=== PATIENT | female | born 1950 | race Caucasian/White ===

== ENCOUNTER 2019-01-23 08:56 | Emergency (ER) | payer OTHER, MEDICARE ==
[~2019-01-23] VITALS: Ht 162.6 cm; Wt 84.2 kg
[2019-01-23 09:01] VITALS: BP 165/85
--- NOTE | 2019-01-23 09:30 | NUR ---
PT CAME IN TODAY FOR SKIN RASH. STATES SHE HAS GOTTEN AN INJECTION SATURDAY EVENING AND HAS USED TOPICAL TREATMENT. STATES SHE HAS SEEN PAIN MANAGEMENT THIS AM AND THEY HAVE REQUESTED BLOOD WORK TO CHECK FOR INFECTION. PT SITTING ON [facility] NO S/S OF DISTRESS AT THIS TIME.
[2019-01-23] MEDS ORDERED: FAMOTIDINE 20 MG TABLET ONE (09:48)
[2019-01-23] MEDS ORDERED: DIPHENHYDRAMINE 25 MG CAPSULE ONE (09:49)
[2019-01-23] MEDS ORDERED: FAMOTIDINE 20 MG TABLET PO ONE (10:00)
[2019-01-23] MEDS ORDERED: DIPHENHYDRAMINE 25 MG CAPSULE PO ONE (10:00)
[2019-01-23 10:01] LABS: BASOPHILS % (AUTO) 0 % (0-1); EOSINOPHILS # (AUTO) 0.44 x10^3/uL (0-0.4); EOSINOPHILS % (AUTO) 3 % (1-7); LYMPHOCYTES # (AUTO) 1.55 x10^3/uL (1-3.4); LYMPHOCYTES % (AUTO) 12 % (22-44); MD NO; MEAN CORPUSCULAR HGB CONC 33.3 g/dL (32.4-35.8); MEAN CORPUSCULAR VOLUME 93.1 fL (80-100); MEAN PLATELET VOLUME 8.1 fL (7.4-10.4); MONOCYTES # (AUTO) 0.37 x10^3/uL (0.2-0.8); MONOCYTES % (AUTO) 3 % (2-9); NEUTROPHILS # (AUTO) 10.56 x10^3/uL (1.8-6.8); NEUTROPHILS % (AUTO) 82 % (42-75); PLATELET COUNT 358 x10^3/uL (130-400); RED BLOOD COUNT 5.27 x10^6/uL (3.82-5.3); RED CELL DISTRIBUTION WIDTH 12.7 % (9.6-15.2)
[2019-01-23 10:09] LABS: ALBUMIN 3.8 g/dL (3.4-5.0); ANION GAP 8 mmol/L (5-15); CALCIUM 9.4 mg/dL (8.5-10.1); CHLORIDE 106 mmol/L (98-107); CREATININE 0.89 mg/dL (0.55-1.02)
== END 2019-01-23 11:59 | disposition home or self-care (01) ==
LOC: ED 11:30
DX: T78.40XA Allergy, unspecified, initial encounter (principal); X58.XXXA Exposure to other specified factors, initial encounter
CPT/HCPCS: 36415; 80048; 82040; 85025; 99284; J7512; Q0163